=== PATIENT | female | born 2000 | race Two or more races ===

== ENCOUNTER 2022-03-15 17:59 | Emergency (ER) | payer MEDICAID ==
[~2022-03-15] VITALS: Ht 170.2 cm; Wt 59.9 kg
[2022-03-15 20:05] LABS: Hematocrit 45.1 % (36.0-46.0); Hemoglobin 14.7 g/dL (12.2-16.2); Mean Corpuscular Hemoglobin 30.2 pg (28.0-32.0); Mean Corpuscular Hgb Conc. 32.6 g/dL (32.0-36.0); Mean Corpuscular Volume 92.7 fL (80.0-100.0); Red Blood Cells 4.87 10^6/uL (4.0-5.20); Red Cell Distribution Width 13.2 % (11.8-14.3); White Blood Cell 3.3 10^3/uL (4.4-10.8)
[2022-03-15 20:09] LABS: Urine Bacteria FEW /hpf (None Seen); Urine Blood Negative /uL (Negative); Urine Mucus FEW (None Seen); Urine Specific Gravity 1.011 (1.001-1.035); Urine WBC 1 /hpf (0 - 5)
[2022-03-15 20:11] LABS: Blast Cells 0; Eosinophils % (manual) 0 (0-7); Metamyelocytes % 0; Myelocytes % 0; Promyelocytes % 0
[2022-03-15 20:14] LABS: Amylase 92 U/L (25-115); Lipase 193 U/L (73-393)
[2022-03-15 20:38] LABS: Band Neutrophils % (manual) 3; Basophils % (manual) 1 (0.0-2.0); Lymphocytes % (manual) 25 (10.0-50.0); Monocytes % (manual) 18 (0-12); Reactive Lymphocytes 9
[2022-03-15] MEDS ORDERED: AZIT250T9 PO ×2 (22:24→22:28)
[2022-03-15] MEDS ORDERED: AZITHROMYCIN 250 MG TAB PO ONE (22:30)
[2022-03-16 00:10] VITALS: BP 110/72
== END 2022-03-16 00:38 | disposition home or self-care (01) ==
LOC: ER 17:59
DX: B34.9 Viral infection, unspecified (principal); R10.84 Generalized abdominal pain; R42 Dizziness and giddiness; J45.909 Unspecified asthma, uncomplicated
CPT/HCPCS: 36415; 74176; 81001; 82150; 83690; 84702; 85007; 85027

== ENCOUNTER 2022-09-07 10:48 | Emergency (ER) | payer MEDICAID ==
[~2022-09-07] VITALS: Ht 170.2 cm; Wt 62.0 kg
[~2022-09-07 10:48] MED LIST: AZIT250T9 PO
[2022-09-07 10:54] VITALS: BP 105/73
[2022-09-07 11:18] LABS: Basophils # (auto) 0.1 10 ^3/uL (0-0.2); Basophils % (auto) 1.7 % (0.0-2.0); Eosinophils # (auto) 0.1 10 ^3/uL (0-0.8); Eosinophils % (auto) 3.1 % (0.0-7.0); Hematocrit 43.5 % (36.0-46.0); Hemoglobin 14.4 g/dL (12.2-16.2); Lymphocytes % (auto) 47.5 % (10.0-50.0); Mean Corpuscular Hemoglobin 30.5 pg (28.0-32.0); Mean Corpuscular Volume 92.2 fL (80.0-100.0); Monocytes # (auto) 0.3 10 ^3/uL (0-1.3); Monocytes % (auto) 7.6 % (0.0-12.0); Neutrophils # (auto) 1.7 10 ^3/uL (1.6-8.6); Neutrophils % (auto) 40.1 % (37.0-80.0); Nucleated Red Blood Cells % 0.2 %; Red Blood Cells 4.71 10^6/uL (4.0-5.20); Red Cell Distribution Width 12.9 % (11.8-14.3); White Blood Cell 4.2 10^3/uL (4.4-10.8)
[2022-09-07 11:30] LABS: Albumin 4.2 g/dL (3.4-5.0); Magnesium 2.2 mg/dL (1.6-2.6); Potassium 4.2 mmol/L (3.5-5.1)
[2022-09-07 11:33] LABS: Bilirubin, Total 0.3 mg/dL (0.2-1.0); Total Protein 7.4 g/dL (6.4-8.2)
[2022-09-07 12:24] LABS: Magnesium 2.2 mg/dL (1.6-2.6)
[2022-09-07] MEDS ORDERED: KETOROLAC TROMETH 30 MG/ML 1ML VIAL IM ONE (16:30)
== END 2022-09-07 20:15 | disposition left against medical advice (07) ==
LOC: ER 10:48
DX: R07.89 Other chest pain (principal); J45.909 Unspecified asthma, uncomplicated; Z79.2 Long term (current) use of antibiotics
CPT/HCPCS: 36415; 71046; 80053; 83690; 83735; 84484; 84702; 85025; 85379; 93005